=== PATIENT | male | born 1955 | race Caucasian/White ===

== ENCOUNTER → 2016-08-21 | Day surgery (SDC) | payer MEDICARE ==
[~2016-08-21] MED LIST: ARIC10TA2 PO; ARIC5TAB PO; BUPIVACAINE HCL PF 0.5% 30 ML VIAL ONE; CHOL5000 PO; CLINDAMYCIN PHOS 900 MG/6 ML VIAL ONE; CLON.1 PO; CLON0.1T PO; CYMB30CA PO; CYMB60CA PO; DICY20TA10 PO; DIME240C PO; KETOROLAC TROMETHAMINE 30 MG/ML (IVP) VIAL IV PUSH ONE; LACTATED RINGER'S 1000 ML INJ 1,000 ML ONE; LISI-372 PO; MIDAZOLAM HCL 2 MG/2 ML VIAL ONE; MULT-65 PO; MULTTAB22 PO; ONDANSETRON HCL 4 MG/2 ML VIAL IV PUSH ONE; PROM25TA10 PO; PROM25TA5 PO; PROPOFOL 200 MG/20 ML AMP IV ONE; PROT40TA PO; TAMS0.4C67 PO; TAMS5CAP PO; VANCOMYCIN HCL 1000 MG VIAL ONE; VITA500015 PO; [UNRECOGNIZED DRUG - CODE]
--- NOTE | 2016-08-25 10:09 | MP ---
cc: IRENE STAHL DATE OF SURGERY: 08/21/2016 PREOPERATIVE DIAGNOSIS: Right cubital tunnel syndrome. Right carpal tunnel syndrome. POSTOPERATIVE DIAGNOSIS: Right cubital tunnel syndrome. Right carpal tunnel syndrome. OPERATION: Right cubital tunnel release with neurolysis of the ulnar nerve Right carpal tunnel release with neurolysis of the median nerve. SURGEON Dr. Irene Stahl . WASTE OIL PUMPER: MIRIAM Bustos ANESTHESIA General. BLOOD LOSS 100 cc TOURNIQUET TIME: Zero minutes. COMPLICATIONS None. JUSTIFICATIONS: This patient is a 61-year male had persistent pain and numbness involving the right arm and right hand. He has failed conservative treatment. The clinical exam as well as EMG did confirm above-named findings. The patient was counseled as to the risks, benefits and alternatives of the above named surgical procedure. He did wish to proceed with surgery. A written consent obtained. The patient identified by name, taken to the operating room and placed in the supine position in general anesthesia administered. As well as 900 mg of IV clindamycin and 1 gram of IV vancomycin does have penicillin allergy. The right upper extremity was prepped and draped using isopropyl, alcohol, Hibiclens solution and DuraPrep solution. The time out was performed. Attention was first turned the right hand a large incision was made over the ulnar border of the palmar crease. Dissection carried down to level of the transverse carpal ligament transverse carpal ligament was released with careful attention paid to protect the median nerve and carpal tunnel release was performed and there was no undue tension upon the median nerve after appropriate neurolysis. Surgical wounds thoroughly irrigated sterile saline solution. The site was closed with 4-0 Vicryl suture. Skin was closed for nylon sutures. Attention was then turned to the right elbow or largest incision was made over the ulnar portion of the right elbow and. Dissection was carried down to level of the cubital tunnel. A Metzenbaum scissors was used to release the cubital tunnel. Careful attention paid to protect the ulnar nerve. The nerve was free of any undue tension surgical wounds thoroughly irrigated sterile saline solution. The subcutaneous layer was closed with 3-0 Vicryl. Skin was closed with Dermabond. Sterile dressing applied. The patient was placed and a splint. He tolerated the procedure with no intraoperative complications noted. Will Soto physician financial assistant was present during seizure to include patient positioning procedure. The medical physician financial assistant indicated due to complexity of the procedure, he was necessary for retraction of muscles and muscle tendon bone neurovascular structures. In regards to release the cubital tunnel and neurolysis of the ulnar nerve. MD NIDA Tucker/gaston /9:29 AM /9:40 AM
== END | disposition home or self-care (01) ==
LOC: ESDC 07:25
PROVIDERS: ATTEND Orthopaedic Surgery Sports Medicine
DX: G56.01 Carpal tunnel syndrome, right upper limb (principal); G56.21 Lesion of ulnar nerve, right upper limb
CPT/HCPCS: 01710; 01810; 64718; 64721; J1885; J2250; J2405; J3010; J3370; J7120